=== PATIENT | male | born 1955 | race Two or more races ===

== ENCOUNTER 2016-11-01 06:40 | Emergency (ER) | payer OTHER ==
--- NOTE | 2016-11-01 06:45 | EDM.PDOC ---
<Aisha Sutton - Last Filed: 11/01/16 07:45> ED HPI GENERAL MEDICAL PROBLEM - General Chief Complaint: Chest Pain Stated Complaint: CHEST PAIN, SOB Time Seen by Provider: 11/01/16 06:55 Source of Information: Reports: Patient History Limitations: Reports: Language Barrier - History of Present Illness INITIAL COMMENTS - FREE TEXT/NARRATIVE: ED ambulatory with c/o left sided chest pain since last [place], nauseated with vomiting this am. NO SOB. No cardiac hx. Diabetic on Metformin, does not routinely check blood sugars. Onset: Other (last [place]) Duration: Hour(s):, Constant (lessens but does not completely go away. ) Location: Reports: Chest Severity: Mild Worsens with: Reports: Other (lying flat) Associated Symptoms: Reports: Nausea/Vomiting. Denies: Shortness of Breath - Related Data Allergies Allergy/AdvReac Type Severity Reaction Status Date / Time No Known Allergies Allergy Verified 11/01/16 06:54 ED ROS GENERAL - Review of Systems Review Of Systems: See Below Constitutional: Reports: No Symptoms HEENT: Reports: No Symptoms Respiratory: Denies: Shortness of Breath, Cough Cardiovascular: Reports: Chest Pain. Denies: Edema Endocrine: Reports: Other (does not check .) GI/Abdominal: Reports: Nausea, Vomiting Musculoskeletal: Reports: No Symptoms ED EXAM, GENERAL - Physical Exam Exam: See Below Exam Limited By: No Limitations General Appearance: Alert, Moderate Distress Ears: Normal External Exam Nose: Normal Inspection Throat/Mouth: Normal Inspection Head: Atraumatic, Normocephalic Respiratory/Chest: No Respiratory Distress, Decreased Breath Sounds Cardiovascular: Normal Peripheral Pulses, Regular Rate, Rhythm. No: No Edema, Tachycardia GI/Abdominal: No Distention, Other (hypoactive ). No: Guarding Back Exam: Normal Inspection Extremities: Other (superficial skin discoloation lower extremities.) Neurological: Alert, Oriented Psychiatric: Normal Affect Skin Exam: Warm, Dry EKG INTERPRETATION Rhythm: NSR Comparison: NA - no prior EKG EKG Interpretation Comments: Acute inferior Course - Vital Signs Last Recorded V/S: Last Vital Signs Temp Pulse Resp BP 131/83 11/01/16 07:24 Pulse Ox - Orders/Labs/Meds Orders: Active Orders 24 hr Category Date Time Status EKG 12 Lead [EKG Documentation Completion] [RC] URGENT Care 11/01/16 07:00 Active Glucose [Blood Glucose Check, Bedside] [] ONETIME Care 11/01/16 06:58 Active Heparin Sodium/D5W [Heparin 25,000 Units in D5W 500 ML] Med 11/01/16 07:15 Active 25,000 units in 500 ml IV TITRATE Sodium Chloride 0.9% [Normal Saline] 1,000 ml Med 11/01/16 06:57 Active IV .BOLUS Medication Orders Sodium Chloride (Normal Saline) 1,000 mls @ 125 mls/hr IV .BOLUS ONE Stop: 11/01/16 14:56 Last Admin: 11/01/16 07:02 Dose: 125 mls/hr Heparin Sodium/Dextrose (Heparin 25,000 Units In D5w 500 Ml) 25,000 units in 500 mls @ 20 mls/hr IV TITRATE EMILY; 1,000 UNITS/HR PRN Reason: Protocol Last Admin: 11/01/16 07:34 Dose: 1,000 units/hr, 20 mls/hr Labs: Laboratory Tests 11/01/16 11/01/16 11/01/16 Range/Units 06:58 06:58 06:58 WBC 9.5 (5.0-10.0) 10^3/uL RBC 5.86 (4.6-6.2) 10^6/uL Hgb 16.9 (14.0-18.0) g/dL Hct 48.9 (40.0-54.0) % MCV 83.4 (80-100) fL MCH 28.8 (27.0-34.0) pg MCHC 34.6 (33.0-35.0) g/dL Plt Count 276 (150-450) 10^3/uL Neut % (Auto) 91.4 H (42.2-75.2) % Lymph % (Auto) 6.9 L (20.5-50.1) % [place] % (Auto) 1.6 L (2-8) % Eos % (Auto) 0.0 L (1.0-3.0) % Baso % (Auto) 0.1 (0.0-1.0) % PT 10.0 (9.0-12.0) SEC INR 1.0 (0.9-1.2) Sodium 133 L (135-145) mmol/L Potassium 5.1 H (3.6-5.0) mmol/L Chloride 98 L (101-111) mmol/L Carbon Dioxide 19.0 L (21.0-31.0) mmol/L Anion Gap 21.1 BUN 19 H (7-18) mg/dL Creatinine 1.0 (0.6-1.3) mg/dL Est Cr Clr Drug Dosing TNP Estimated GFR (MDRD) > 60 BUN/Creatinine Ratio 19.00 Glucose 521 H* (74-105) mg/dL POC Glucose (70-105) mg/dl Calcium 9.7 (8.4-10.2) mg/dl Magnesium 2.1 (1.8-2.5) mg/dL Total Bilirubin 1.0 (0.2-1.0) mg/dL AST 119 H (10-42) IU/L ALT 34 (10-60) IU/L Alkaline Phosphatase 69 (42-121) IU/L CK-MB (CK-2) (0.4-4.7) ng/mL Troponin I 40.99 H* (0.00-0.02) ng/ml B-Natriuretic Peptide 83 (0-100) pg/ml Total Protein 7.7 (6.7-8.2) g/dl Albumin 4.6 (3.2-5.5) g/dl Globulin 3.1 Albumin/Globulin Ratio 1.48 Amylase 29 (28-100) U/L Lipase 21 L (22-51) U/L 11/01/16 11/01/16 11/01/16 Range/Units 06:58 07:06 07:34 WBC (5.0-10.0) 10^3/uL RBC (4.6-6.2) 10^6/uL Hgb (14.0-18.0) g/dL Hct (40.0-54.0) % MCV (80-100) fL MCH (27.0-34.0) pg MCHC (33.0-35.0) g/dL Plt Count (150-450) 10^3/uL Neut % (Auto) (42.2-75.2) % Lymph % (Auto) (20.5-50.1) % [place] % (Auto) (2-8) % Eos % (Auto) (1.0-3.0) % Baso % (Auto) (0.0-1.0) % PT (9.0-12.0) SEC INR (0.9-1.2) Sodium (135-145) mmol/L Potassium (3.6-5.0) mmol/L Chloride (101-111) mmol/L Carbon Dioxide (21.0-31.0) mmol/L Anion Gap BUN (7-18) mg/dL Creatinine (0.6-1.3) mg/dL Est Cr Clr Drug Dosing Estimated GFR (MDRD) BUN/Creatinine Ratio Glucose (74-105) mg/dL POC Glucose > 500 H* 464 H* (70-105) mg/dl Calcium (8.4-10.2) mg/dl Magnesium (1.8-2.5) mg/dL Total Bilirubin (0.2-1.0) mg/dL AST (10-42) IU/L ALT (10-60) IU/L Alkaline Phosphatase (42-121) IU/L CK-MB (CK-2) 72.70 H (0.4-4.7) ng/mL Troponin I (0.00-0.02) ng/ml B-Natriuretic Peptide (0-100) pg/ml Total Protein (6.7-8.2) g/dl Albumin (3.2-5.5) g/dl Globulin Albumin/Globulin Ratio Amylase (28-100) U/L Lipase (22-51) U/L Meds: Medications Generic Name Dose Route Start Last Admin Trade Name Freq PRN Reason Stop Dose Admin Sodium Chloride 1,000 mls @ 125 mls/hr 11/01/16 06:57 11/01/16 07:02 Normal Saline IV 11/01/16 14:56 125 mls/hr .BOLUS ONE Administration Heparin Sodium/Dextrose 25,000 units in 500 mls @ 20 mls/hr 11/01/16 07:15 07:34 Heparin 25,000 Units In D5w 500 Ml IV 1,000 units/hr TITRATE EMILY 20 mls/hr Protocol Administration 1,000 UNITS/HR Discontinued Medications Generic Name Dose Route Start Last Admin Trade Name Freq PRN Reason Stop Dose Admin Aspirin 324 mg 11/01/16 06:56 11/01/16 07:01 Aspirin PO 11/01/16 06:57 324 mg ONETIME ONE Administration Aspirin Confirm 11/01/16 06:58 11/01/16 07:23 Aspirin Administered 11/01/16 06:59 Not Given Dose 324 mg .ROUTE .STK-MED ONE Heparin Sodium (Porcine) 3,200 units 11/01/16 07:15 11/01/16 07:27 Heparin Sodium IVPUSH 11/01/16 07:16 3,200 units .BOLUS ONE Administration Insulin Human Regular 12 unit 11/01/16 07:09 11/01/16 07:16 Novolin R IV 11/01/16 07:10 12 units ONETIME ONE Administration Protocol Nitroglycerin 0.4 mg 11/01/16 06:56 11/01/16 07:02 Nitrostat SL 11/01/16 06:57 0.4 mg ONETIME ONE Administration Nitroglycerin Confirm 11/01/16 06:58 11/01/16 07:23 Nitrostat Administered 11/01/16 06:59 Not Given Dose 0.4 mg .ROUTE .STK-MED ONE Nitroglycerin 0.4 mg 11/01/16 07:15 11/01/16 07:24 Nitrostat SL 11/01/16 07:16 0.4 mg ONETIME ONE Administration Ondansetron HCl 4 mg 11/01/16 07:02 11/01/16 07:17 Zofran IV 11/01/16 07:03 4 mg ONETIME ONE Administration Tenecteplase 50 mg 11/01/16 07:21 Tnkase IV 11/01/16 07:22 ONETIME ONE Protocol Tenecteplase 30 mg 11/01/16 07:27 11/01/16 07:30 Tnkase IV 11/01/16 07:28 30 mg ONETIME ONE Administration Protocol - Radiology Interpretation Free Text/Narrative:: CXR Negative - Re-Assessments/Exams Free Text/Narrative Re-Assessment/Exam: 11/01/16 07:49 Pain continues 2 /10 afte 2 Nitro. TC consulty [facility] Dr. Sanon ED accepting of patient. Reported consultation with cardiology with recommendation to proceed with thrombolytic if no contra indication Departure - Departure Time of Disposition: 07:50 Disposition: DC/Tfer to Acute Hospital 02 Reason for Transfer *Q: Primary PCI Indicated Condition: undetermined Clinical Impression: Acute coronary syndrome Referrals: PCP,Not In Area [Primary Care Provider] - <Mell Irby - Last Filed: 11/01/16 08:08> Course - Vital Signs Text/Narrative:: Patient was given aspirin, and 2 nitro sublingual. Cardiology was faxed initial EKG to cardiology in [facility]. Cardiology has accepted and requested TNKASE be started. Patient has reported during visit that pain is midepigastric and radiates into left side of chest. He rates it about one or two on a scale of ten. EKG consistant with Inferior Infarct wit lateral lead involvement. Repeat EKG no specific changes. Pt did suffer n/v and given Zofran. Vitals remained stable during visit. Pt transported by ambulance as air ambulance ETA prolonged. Family here and pt gives permission to discuss case. Pt agrees to transfer to [facility]. Ambulance has arrived and pt to be transferred for ongoing care/evaluation. Departure - Departure Reason for Transfer *Q: Other (Pt to be evaluated by cardiology, PCI in possible course of care)
[2016-11-01] MEDS ORDERED: Nitroglycerin 0.4 MG Tab.SL SL ONE ×2 (06:56→07:15)
[2016-11-01] MEDS ORDERED: Aspirin 81 MG Tab.Chew PO ONE (06:56)
[2016-11-01] MEDS ORDERED: Sodium Chloride 0.9% 1,000 ML IV ONE (06:57)
[2016-11-01] MEDS ORDERED: Aspirin 81 MG Tab.Chew ONE (06:58)
[2016-11-01] MEDS ORDERED: Nitroglycerin 0.4 MG Tab.SL ONE (06:58)
[2016-11-01] MEDS ORDERED: Ondansetron 4 MG/2 ML SDV IV ONE (07:02)
[2016-11-01] MEDS ORDERED: Insulin Regular, Human 100 Units/ML 10 ML Vial IV ONE (07:09)
[2016-11-01] MEDS ORDERED: Heparin Sodium 5,000 Units/ML Vial IVPUSH ONE (07:15)
[2016-11-01] MEDS ORDERED: Heparin Sodium/D5W 25,000 UNITS/500 ML BAG IV SCH (07:15)
[2016-11-01] MEDS ORDERED: Tenecteplase 50 MG Kit IV ONE ×2 (07:21→07:27)
[2016-11-01 07:37] LABS: CHLORIDE,CL 98 mmol/L (101-111); SODIUM,NA 133 mmol/L (135-145)
[2016-11-01 08:30] VITALS: BP 125/72
--- NOTE | 2016-11-03 14:19 | EKG ---
11/01/2016 - MILDRED RODRIGUEZ - TIME: 07:28 a.m. EKG per my reading, shows inferior ST elevation [place]. MODL /[id number]
--- NOTE | 2016-11-03 14:19 | EKG ---
11/01/2016 - MILDRED RODRIGUEZ - TIME: 06:46 a.m. EKG per my reading, shows inferior ST elevation with lateral reciprocal changes. MOD /[id number]
--- NOTE | 2016-11-03 16:43 | EKG ---
11/01/2016 - DAVID RODRIGUEZDede JAVED - TIME: 7:46. EKG per my reading, shows inferior ST elevation with sinus rhythm at a rate of 95 with lateral reciprocal changes. [facility] /[id number]
== END 2016-11-01 07:55 ==
LOC: DL.ED 06:40
DX: I24.9 Acute ischemic heart disease, unspecified (principal)
CPT/HCPCS: 36415; 71010; 80053; 82150; 82553; 82962; 83690; 83735; 83880; 84484; 85025; 85610; 93005; 96365; 96375; 96376; 99285; A9270; J1644; J2405; J3101; J7030; J1815-GY